=== PATIENT | female | born 1960 | race Caucasian/White ===

== ENCOUNTER 2017-07-08 10:15 | Outpatient (CLI) | payer BC ==
--- NOTE | 2017-07-08 13:58 | RAD ---
CERVICAL SPINE FOUR VIEWS: HISTORY: Cervicalgia. Right neck pain. COMPARISON: None. FINDINGS: AP, open mouth, lateral neutral, lateral extension, and lateral flexion views of the cervical spine are performed. No prevertebral soft tissue swelling. Predental space is normal. The odontoid process is partially obscured. The lateral masses of C1 and C2 articulate appropriately. On the AP projection, there are mild degenerative changes of the facets. In the neutral position, there is straightening of the normal cervical lordosis. There is 1.6 mm of anterolisthesis of C3 upon C4, in the neutral position. There is 1.6 mm of anterolisthesis of C3 u ann C4, in the neutral position. There is 1.6 mm of anterolisthesis of C3 upon C4 upon flexion, wit h resolution of anterolisthesis upon extension. There is 2.2 mm of anterolisthesis of C4 upon C5 in the neutral position. There is 1.9 mm of anterolisthesis of C4 upon C5 upon flexion. Upon extensi on, there is 3.1 mm of anterolisthesis. Upon flexion, there is 2.9 mm of anterolisthesis of C5 upon C6. Upon extension, there is 3.4 mm of anterolisthesis of C5 upon C6. IMPRESSION: Spondylolisthesis, as above. POS: KIM
== END 2017-07-08 10:16 | disposition home or self-care (01) ==
LOC: TBSIIMAG 10:15
PROVIDERS: ATTEND Surgery
DX: M54.2 Cervicalgia (principal); M43.12 Spondylolisthesis, cervical region
CPT/HCPCS: 72050

== ENCOUNTER 2017-11-12 05:33 | Day surgery (SDC) | payer BC ==
[2017-11-12] MEDS ORDERED: CEFAZOLIN/Water 2 GM/20 ML SYRINGE ONE (06:11)
[2017-11-12 06:33] LABS: #Basophils 0.1 thou/uL (0.0-0.2); #Eosinphils 0.2 thou/uL (0.0-0.7); #Lymphocytes 1.7 thou/uL (1.20-3.40); #Monocytes 0.5 thou/uL (0.11-0.59); #Neutrophils 2.3 thou/uL (1.40-6.50); %Basophils 1.4 % (0.0-1.0); %Eosinophils 4.6 % (0.0-10.0); %Lymphocytes 35.9 % (21.0-51.0); %Monocytes 10.7 % (0.0-10.0); %Neutrophils 47.3 % (42.0-75.0); Hemoglobin 13.1 g/dL (12.0-16.0); Mean Corpuscular HGB CONC 32.2 g/dL (32.0-36.0); Mean Corpuscular Volume 89.9 fl (81.0-99.0); Mean Platelet Volume 7.2 fL (7.4-10.4); Platelet Count 313 thou/uL (130-400); RBC Distribution Width 11.4 % (11.5-14.5); Red Blood Cell (RBC) Count 4.53 mill/uL (4.20-5.40); White Blood Cell (WBC) Count 4.9 thou/uL (4.8-10.8)
[2017-11-12] MEDS ORDERED: Thrombin 5000 UNITS/5 ML VIAL ONE (06:33)
[2017-11-12] MEDS ORDERED: Sodium Chloride 0.9% 10 ML ONE (06:33)
[2017-11-12 06:39] LABS: Prothrombin Time 13.4 SEC (12.0-14.7)
[2017-11-12 06:49] LABS: Anion Gap 10 mmol/L (10-20); BUN (Urea Nitrogen) 19 mg/dL (9.8-20.1); Calc. Creatinine Clearance 71 mL/min (70-130); Calcium 9.3 mg/dL (7.8-10.44); Carbon Dioxide 27 mmol/L (22-29); Chloride 107 mmol/L (98-107); Estimated GFR-MDRD 74; Glucose 105 mg/dL (70-105); Potassium 3.8 mmol/L (3.5-5.1); Sodium 140 mmol/L (136-145)
[2017-11-12] MEDS ORDERED: HYDROmorphone 0.5 MG/0.5 ML SYRINGE ONE (07:12)
[2017-11-12] MEDS ORDERED: Fentanyl 100 MCG/2 ML VIAL ONE ×2 (07:12→10:38)
[2017-11-12] MEDS ORDERED: Midazolam HCl 2 mg/2 ml Vial ONE (07:25)
[2017-11-12] MEDS ORDERED: Albuterol Sulfate HFA (OR ONLY) ONE (07:29)
[2017-11-12] MEDS ORDERED: Promethazine HCl 25 MG/ML VIAL IM PRN ×2 (08:44→09:50)
[2017-11-12] MEDS ORDERED: HYDROmorphone 2 MG/ML VIAL SLOW IVP PRN (08:44)
[2017-11-12] MEDS ORDERED: Promethazine HCl 25 MG/ML VIAL SLOW IVP PRN (08:44)
[2017-11-12] MEDS ORDERED: Meperidine HCl/PF 25 MG/ML VIAL SLOW IVP PRN (08:44)
[2017-11-12] MEDS ORDERED: Morphine Sulfate 2 MG/ML SYRINGE SLOW IVP PRN (08:44)
[2017-11-12] MEDS ORDERED: Ondansetron HCl/PF 4 MG/2 ML Vial IVP PRN ×2 (08:44→09:50)
[2017-11-12] MEDS ORDERED: HYDROcodone/Acetaminophen 7.5/325 mg Tablet PO PRN (09:50)
[2017-11-12] MEDS ORDERED: Mag-Al 1200 mg/1200 mg/30 ML UDCUP PO PRN (09:50)
[2017-11-12] MEDS ORDERED: Acetaminophen/Codeine 30-300mg Tablet PO PRN (09:50)
[2017-11-12] MEDS ORDERED: Milk Of Magnesia 30 ML UDCUP PO PRN (09:50)
[2017-11-12] MEDS ORDERED: Fleet Enema 133 ML BOT PR PRN (09:50)
[2017-11-12] MEDS ORDERED: traMADol HCl 50 MG TAB PO PRN (09:50)
[2017-11-12] MEDS ORDERED: Bisacodyl 10 MG SUPP PR PRN (09:50)
[2017-11-12] MEDS ORDERED: Acetaminophen 325 MG TAB PO PRN (09:50)
[2017-11-12] MEDS ORDERED: tiZANidine HCl 4 MG TAB PO PRN (09:50)
--- NOTE | 2017-11-12 10:38 | OP ---
DATE OF PROCEDURE: 11/12/2017 OR: OR #5 WOUND TYPE: Type 1 wound. SURGEON: Dimitris Chino M.D. TOMBSTONE SETTER: Maurice Moore PA-C. PREPROCEDURE DIAGNOSES: Cervical stenosis with C7 radiculopathy. POSTPROCEDURE DIAGNOSES: Cervical stenosis with C7 radiculopathy. PROCEDURE: 1. Anterior C6-C7 diskectomy for decompression of spinal cord and nerve roots. 2. Placement of interbody spacer packed with local bone autograft obtained from same incision and al lograft for arthrodesis, C6-C7. 3. Anterior cervical plate and screw fixation, C6-C7. 4. Use of operative microscope for microdissection. PROCEDURE: After informed consent was obtained from the patient, the patient brought to OR 5. Prope r patient pause and identification was carried out. She was then placed under excellent general endo tracheal anesthesia and positioned supine on the operating room table. All appropriate points were p added. We identified a right anterior approach that would allow us to proceed to the C6-C7 segment. This maria luz was drawn out and this area sterilely cleansed, prepared, and draped. Proper patient paus e and identification was carried out. The wound was then opened with a combination of sharp, monopol ar and blunt dissection. We proceeded lateral to the tracheoesophageal bundle and medial to the righ t carotid sheath. We identified the prevertebral layer of deep cervical fascia and retractors were p laced. C6-C7 was identified and distraction occurred. Microscope was brought in the field and a dis kectomy was performed. We had excellent decompression of the common dural tube and bilateral C7 nerv e roots. The endplates were prepared and interbody spacer packed with local bone autograft obtained from same incision and allograft was placed at C6-C7 for arthrodesis. Microscope was then removed an d anterior cervical plate and screw fixation with final tightening at C6-C7 occurred and copious irri gation occurred throughout. Hemostasis was also maximized throughout. The wound was then closed in anatomic layers over a drain. The patient then emerged from anesthesia.
[2017-11-12 13:20] VITALS: BMI 21.9
[2017-11-12] MEDS: Sodium Chloride 0.9% 1,000 ML IV SCH (13:30)
[2017-11-12] MEDS: CEFAZOLIN/Water 2 GM/20 ML SYRINGE SLOW IVP SCH ×2 (13:44→22:29)
[2017-11-13] MEDS: Sodium Chloride 0.9% 1,000 ML IV SCH (04:09)
[2017-11-13 08:14] VITALS: BP 138/78; TEMP 98.5
[2017-11-13] MEDS ORDERED: FLUoxetine HCl 20 MG CAP PO SCH (09:00)
--- NOTE | 2017-11-13 09:01 | PRG ---
DATE OF SERVICE: 11/13/2017 Ms. Bliss is postoperative day #1, C6-C7 ACDF. She is doing well with improvement in her right arm pain. She does have some paresthesias. I suspect this will improve with time. Her drain output de la cruz s been 10 mL. We will plan to remove it. On exam, she is doing well in regards to neurological func tion. We went over in some postoperative issues and she will be dismissed.
== END 2017-11-13 10:12 | disposition home or self-care (01) ==
LOC: SDC 05:33 → 2SW 09:50 → SDC 11-13 10:12
PROVIDERS: ATTEND Surgery
PROC: 0RT30ZZ Resection of Cervical Vertebral Disc, Open Approach (ICD-10-PCS; principal; 2017-11-13)
PROC: 0RG10A0 Fusion of Cervical Vertebral Joint with Interbody Fusion Device, Anterior Approach, Anterior Column, Open Approach (ICD-10-PCS; principal; 2017-11-13)
DX: M48.02 Spinal stenosis, cervical region (principal); M54.12 Radiculopathy, cervical region; G43.909 Migraine, unspecified, not intractable, without status migrainosus; F17.210 Nicotine dependence, cigarettes, uncomplicated; F32.9 Major depressive disorder, single episode, unspecified; K27.9 Peptic ulcer, site unspecified, unspecified as acute or chronic, without hemorrhage or perforation; Z79.899 Other long term (current) drug therapy
CPT/HCPCS: 36415; 76001; 80048; 85025; 85610; 85730; A4216; C1713; C1776; J0131; J1170; J2250; J3010; J3490